=== PATIENT | male | born 1980 ===

== ENCOUNTER 2020-04-21 22:20 | Emergency (ER) | payer OTHER ==
[~2020-04-21] VITALS: Ht 182.9 cm; Wt 77.1 kg
== END 2020-04-22 00:42 | disposition left against medical advice (07) ==
LOC: ER 22:20
DX: R29.818 Other symptoms and signs involving the nervous system (principal); Z53.21 Procedure and treatment not carried out due to patient leaving prior to being seen by health care provider
CPT/HCPCS: 93005; 93010; 99283-25